=== PATIENT | male | born 1985 | race Caucasian/White ===

== ENCOUNTER 2016-08-26 14:14 | Emergency (ER) | payer BC ==
[~2016-08-26] VITALS: Ht 177.8 cm; Wt 140.6 kg
[~2016-08-26 14:14] MED LIST: SINGULAIR10 M1 PO; SYMBICORT1 AER INH; ZOFRAN ODT4 MG SL
[2016-08-26 14:26] VITALS: BP 182/96
[2016-08-26] MEDS ORDERED: CEPHALEXIN500 M1 PO (15:02)
== END 2016-08-26 15:13 | disposition home or self-care (01) ==
LOC: ED 14:14
DX: S61.211A Laceration without foreign body of left index finger without damage to nail, initial encounter (principal); Z29.12 Encounter for prophylactic antivenin; Z91.040 Latex allergy status; Z79.899 Other long term (current) drug therapy; W45.8XXA Other foreign body or object entering through skin, initial encounter; Y93.9 Activity, unspecified; Y92.9 Unspecified place or not applicable; Y99.9 Unspecified external cause status

== ENCOUNTER → 2022-06-26 | Outpatient (CLI) | payer BC ==
[~2022-06-26] MED LIST changes: +CEPHALEXIN500 M1 PO
== END | disposition home or self-care (01) ==
LOC: US 11:52
PROVIDERS: ATTEND Family Medicine
DX: I80.01 Phlebitis and thrombophlebitis of superficial vessels of right lower extremity (principal); M79.89 Other specified soft tissue disorders

== ENCOUNTER → 2024-08-11 | Outpatient (CLI) | payer BC | END | disposition home or self-care (01) | LOC: CARD 09:33 | PROVIDERS: ATTEND Family Medicine | DX: I10 Essential (primary) hypertension (principal) ==

== ENCOUNTER 2025-02-17 09:07 | Emergency (ER) | payer BC ==
[~2025-02-17] VITALS: Ht 177.8 cm; Wt 133.8 kg
[2025-02-17] MEDS ORDERED: MONTELUKAST SOD10 MG PO (09:20)
[2025-02-17 09:21] VITALS: BP 149/81
[2025-02-17] MEDS ORDERED: LISINOPRIL20 MG PO (09:21)
== END 2025-02-17 13:26 | disposition home or self-care (01) ==
LOC: ED 09:07
DX: S93.401A Sprain of unspecified ligament of right ankle, initial encounter (principal); J45.909 Unspecified asthma, uncomplicated; W19.XXXA Unspecified fall, initial encounter; Y93.89 Activity, other specified; Y92.89 Other specified places as the place of occurrence of the external cause; Y99.8 Other external cause status